=== PATIENT | female | born 1955 | race Caucasian/White ===

== ENCOUNTER → 2019-02-10 14:56 | Outpatient (CLI) | payer BC, SELFPAY ==
[2019-02-10 18:30] LABS: Ferritin 38 ng/mL (8-252)
[2019-02-12 16:59] LABS: Thyroid Peroxidase AB 9 IU/mL (0-34)
== END ==
PROVIDERS: Referring Provider Dermatology Pediatric Dermatology; Visit Provider Dermatology Pediatric Dermatology
DX: E03.8 Other specified hypothyroidism (principal); L40.0 Psoriasis vulgaris; L67.8 Other hair color and hair shaft abnormalities
CPT/HCPCS: 36415; 82728; 86038; 86376